=== PATIENT | male | born 1955 | race Caucasian/White ===

== ENCOUNTER 2017-10-13 04:42 | Emergency (ER) | payer OTHER ==
[~2017-10-13] VITALS: Ht 177.8 cm; Wt 77.4 kg
[~2017-10-13 04:42] MED LIST: ADVAIR 100/501 DISK IH; CELEXA40 MG PO; DEMEROL100 MG PO; GABAPENTIN300 MG PO; HYDROXYZINE HCL25 MG PO; KADIAN30 MG PO; LOTREL 10-20 M1 EACH PO; LOTREL 10/21 CAPSULE PO; OXYCODONE HCL30 MG PO; OXYCONTIN80 MG PO; POTASSIUM-9999 MG PO; SOMA350 MG PO
[2017-10-13 05:52] VITALS: BP 160/88
[2017-10-14] MEDS ORDERED: CELEXA10 MG PO (00:52)
[2017-10-14] MEDS ORDERED: SOMA250 MG PO (00:53)
== END 2017-10-13 05:53 | disposition home or self-care (01) ==
LOC: EME 04:42
DX: R04.0 Epistaxis (principal); F31.9 Bipolar disorder, unspecified; R05 Cough; I10 Essential (primary) hypertension; J44.9 Chronic obstructive pulmonary disease, unspecified; F17.200 Nicotine dependence, unspecified, uncomplicated
CPT/HCPCS: 99281; 99284

== ENCOUNTER 2017-10-13 23:43 | Emergency (ER) | payer OTHER ==
[~2017-10-13] VITALS: Ht 177.8 cm; Wt 76.3 kg
[2017-10-14] MEDS ORDERED: CELEXA10 MG PO (00:52)
[2017-10-14] MEDS ORDERED: SOMA250 MG PO (00:53)
[2017-10-14 01:09] VITALS: BP 179/94
== END 2017-10-14 01:12 | disposition home or self-care (01) ==
LOC: EME 23:43
DX: F31.10 Bipolar disorder, current episode manic without psychotic features, unspecified (principal); Z76.0 Encounter for issue of repeat prescription; I10 Essential (primary) hypertension; F17.200 Nicotine dependence, unspecified, uncomplicated
CPT/HCPCS: 90839; 99281; 99283

== ENCOUNTER 2017-10-18 05:45 | Inpatient (IN) | payer OTHER ==
[~2017-10-18] VITALS: Ht 177.8 cm; Wt 74.0 kg
[~2017-10-18 05:45] MED LIST changes: +CELEXA10 MG PO; +SOMA250 MG PO
[2017-10-18 07:05] LABS: HEMATOCRIT 36.8 % (38.0-50.0); MCH 31.7 PG (29.0-34.0); MCHC 35.3 G/DL (30.0-36.0); MCV 89.8 FL (86-99); PLATELET COUNT 293 K/uL (156-360); RBC DIS.WIDTH-CV 13.7 % (11.8-14.6); RBC DIS.WIDTH-SD 44.5 % (39-53); WHITE BLOOD COUNT 9.9 K/uL (4.1-10.2)
[2017-10-18 07:07] LABS: APPEARANCE CLEAR ((CLEAR)); BILIRUBIN NEGATIVE; BLOOD NEGATIVE; COLOR YELLOW ((YELLOW)); GLUCOSE (STRIP) NEGATIVE; KETONES 20; LEUKOCYTES NEGATIVE; NITRITE NEGATIVE; PROTEIN (STRIP) NEGATIVE; SPECIFIC GRAVITY 1.012 (1.000-1.030); UCUL ADDED? NO; UROBILINOGEN 0.2 MG/DL (0.2-1.0)
[2017-10-18 07:22] LABS: AMPHETAMINE NEGATIVE (500 ng/mL); BARBITURATES NEGATIVE (200 ng/mL); BENZODIAZEPINES NEGATIVE (150 ng/mL); BUPRENORPHINE NEGATIVE (10 ng/mL); COCAINE NEGATIVE (150 ng/mL); METHADONE NEGATIVE (200 ng/mL); METHAMPHETAMINE NEGATIVE (500 ng/mL); OPIATES (MORPHINE) NEGATIVE (100 ng/mL); OXYCODONE NEGATIVE (100 ng/mL); PHENCYCLIDINE NEGATIVE (25 ng/mL); PROPOXYPHENE NEGATIVE (300 ng/mL); THC CANNABINOIDS NEGATIVE (50 ng/mL); TRICYCLIC ANTIDEPRESSANTS NEGATIVE (300 ng/mL)
[2017-10-18 07:27] LABS: CHLORIDE 101 MEQ/L (99-109); POTASSIUM 3.9 MEQ/L (3.7-5.4); SODIUM 135 MEQ/L (136-147)
[2017-10-18 07:35] LABS: CREATININE 1.2 MG/DL (0.6-1.3); GFR ESTIMATE (CALCULATED) > 59 mL/min/ (58.99-99999); GLUCOSE 158 mg/dL (70-99); SERUM ETHYL ALCOHOL < 10 mg/dL; UREA NITROGEN (BUN) 24 mg/dL (9-23)
[2017-10-18] MEDS ORDERED: CELEXA20 MG PO (12:45)
[2017-10-18] MEDS ORDERED: AMBIEN10 MG PO (12:46)
[2017-10-18] MEDS ORDERED: RANITIDINE HCL150 M1 PO (12:46)
[2017-10-18] MEDS ORDERED: ADVAIR 500/501 DISK IH (13:00)
[2017-10-18] MEDS ORDERED: VENTOLIN HFA18 GM IH (13:02)
[2017-10-18] MEDS ORDERED: SPIRIVA1 INHALATI IH (13:02)
[2017-10-18] MEDS ORDERED: REVATIO20 MG PO (13:05)
[2017-10-19 08:00] VITALS: BP 188/79
[2017-10-19 16:56] VITALS: BP 107/72
[2017-10-20 07:37] VITALS: BP 122/63
[2017-10-21 07:31] VITALS: BP 113/59
[2017-10-21 16:02] VITALS: BP 173/71
[2017-10-22 07:41] VITALS: BP 150/63
[2017-10-22] MEDS ORDERED: SEROQUEL100 MG PO (09:00)
[2017-10-22] MEDS ORDERED: ADVAIR 500/501 DISK IH (09:00)
[2017-10-22] MEDS ORDERED: VENTOLIN HFA18 GM IH (09:00)
[2017-10-22] MEDS ORDERED: LOTREL 10/21 CAPSULE PO (09:00)
[2017-10-22] MEDS ORDERED: SPIRIVA1 INHALATI IH (09:00)
[2017-10-22] MEDS ORDERED: POTASSIUM-9999 MG PO (09:00)
[2017-10-22] MEDS ORDERED: SEROQUEL400 MG PO (09:00)
== END 2017-10-22 13:02 | disposition home or self-care (01) | DRG 885 ==
LOC: EME → EDBD 05:45 → EME 05:45 → EDOF 10:11 → 1WEST 10:11 → ENRESERV 14:20 → 1WEST 14:20
PROVIDERS: Emergency Medicine
DX: F31.2 Bipolar disorder, current episode manic severe with psychotic features (principal); I10 Essential (primary) hypertension; J44.9 Chronic obstructive pulmonary disease, unspecified; F17.200 Nicotine dependence, unspecified, uncomplicated; Z91.5 Personal history of self-harm
CPT/HCPCS: 80048; 81003; 85027; 90837; 94640; 94799; 97150 GO; 97166 GO; 99281; 99283; G0480

== ENCOUNTER 2017-10-22 21:01 | Emergency (ER) | payer OTHER ==
[~2017-10-22] VITALS: Ht 177.8 cm; Wt 77.6 kg
[~2017-10-22 21:01] MED LIST changes: +ADVAIR 500/501 DISK IH; +AMBIEN10 MG PO; +CELEXA20 MG PO; +RANITIDINE HCL150 M1 PO; +REVATIO20 MG PO; +SEROQUEL100 MG PO; +SEROQUEL400 MG PO; +SPIRIVA1 INHALATI IH; +VENTOLIN HFA18 GM IH
[2017-10-23 01:44] VITALS: BP 107/84
[2017-10-24] MEDS ORDERED: CARISOPRODOL250 MG PO (23:16)
[2017-10-24] MEDS ORDERED: AMBIEN10 MG PO (23:17)
[2017-10-24] MEDS ORDERED: CELEXA20 MG PO (23:17)
== END 2017-10-23 01:45 | disposition home or self-care (01) ==
LOC: EME 21:01
DX: F43.20 Adjustment disorder, unspecified (principal); F31.9 Bipolar disorder, unspecified; I10 Essential (primary) hypertension; K21.9 Gastro-esophageal reflux disease without esophagitis; F17.200 Nicotine dependence, unspecified, uncomplicated
CPT/HCPCS: 90839; 99281; 99283

== ENCOUNTER 2017-10-23 04:50 | Emergency (ER) | payer OTHER ==
[~2017-10-23] VITALS: Ht 177.8 cm; Wt 77.6 kg
[2017-10-23 04:52] VITALS: BP 112/81
[2017-10-24] MEDS ORDERED: CARISOPRODOL250 MG PO (23:16)
[2017-10-24] MEDS ORDERED: AMBIEN10 MG PO (23:17)
[2017-10-24] MEDS ORDERED: CELEXA20 MG PO (23:17)
== END 2017-10-23 05:20 | disposition home or self-care (01) ==
LOC: EME 04:50
DX: Z76.89 Persons encountering health services in other specified circumstances (principal); F31.9 Bipolar disorder, unspecified
CPT/HCPCS: 99281; 99283

== ENCOUNTER 2017-10-24 20:12 | Observation (INO) | payer OTHER ==
[~2017-10-24] VITALS: Ht 177.8 cm; Wt 77.9 kg
[2017-10-24 20:52] LABS: APPEARANCE CLEAR ((CLEAR)); BILIRUBIN NEGATIVE; BLOOD NEGATIVE; COLOR YELLOW ((YELLOW)); GLUCOSE (STRIP) NEGATIVE; KETONES NEGATIVE; LEUKOCYTES NEGATIVE; NITRITE NEGATIVE; PROTEIN (STRIP) NEGATIVE; SPECIFIC GRAVITY 1.017 (1.000-1.030); UCUL ADDED? NO; UROBILINOGEN 0.2 MG/DL (0.2-1.0)
[2017-10-24 21:02] LABS: HEMOGLOBIN 12.7 G/DL (12.5-16.6); MCH 31.7 PG (29.0-34.0); MCHC 34.3 G/DL (30.0-36.0); MCV 92.3 FL (86-99); PLATELET COUNT 280 K/uL (156-360); RBC DIS.WIDTH-SD 47.7 % (39-53); RED BLOOD COUNT 4.01 M/uL (4.00-5.50); WHITE BLOOD COUNT 10.5 K/uL (4.1-10.2)
[2017-10-24 21:13] LABS: ALBUMIN 4.3 g/dL (3.2-4.8); CHLORIDE 106 mEq/L (99-109)
[2017-10-24 21:14] LABS: POTASSIUM 4.7 mEq/L (3.7-5.4); SODIUM 140 mEq/L (136-147)
[2017-10-24 21:16] LABS: GLUCOSE 94 mg/dL (70-99)
[2017-10-24 21:18] LABS: TOTAL BILIRUBIN 0.9 mg/dL (0.0-1.0)
[2017-10-24 21:19] LABS: ALKALINE PHOSPHATASE 70 IU/L (3-129); GFR ESTIMATE (CALCULATED) 41 mL/min/ (58.99-99999)
[2017-10-24 21:21] LABS: AST (GOT) 25 IU/L (2-34)
[2017-10-24 21:22] LABS: ALT (GPT) 24 IU/L (3-49)
[2017-10-24 21:24] LABS: CREATININE 1.8 mg/dL (0.6-1.3); UREA NITROGEN (BUN) 39 mg/dL (9-23)
[2017-10-24 21:42] LABS: TROP-I INTERPRETATION NEGATIVE; TROPONIN-I 0.01 ng/mL (0.0-0.30)
[2017-10-24 21:54] LABS: SERUM ETHYL ALCOHOL < 10 mg/dL
[2017-10-24 22:33] LABS: AMPHETAMINE NEGATIVE (500 ng/mL); BARBITURATES NEGATIVE (200 ng/mL); BENZODIAZEPINES NEGATIVE (150 ng/mL); BUPRENORPHINE NEGATIVE (10 ng/mL); COCAINE NEGATIVE (150 ng/mL); METHADONE NEGATIVE (200 ng/mL); METHAMPHETAMINE NEGATIVE (500 ng/mL); OPIATES (MORPHINE) NEGATIVE (100 ng/mL); OXYCODONE NEGATIVE (100 ng/mL); PHENCYCLIDINE NEGATIVE (25 ng/mL); PROPOXYPHENE NEGATIVE (300 ng/mL); THC CANNABINOIDS NEGATIVE (50 ng/mL); TRICYCLIC ANTIDEPRESSANTS PRESUMPTIVE POSITIVE (300 ng/mL)
[2017-10-24] MEDS ORDERED: CARISOPRODOL250 MG PO (23:16)
[2017-10-24] MEDS ORDERED: AMBIEN10 MG PO (23:17)
[2017-10-24] MEDS ORDERED: CELEXA20 MG PO (23:17)
[2017-10-25 01:28] VITALS: BP 110/57
[2017-10-25 05:04] VITALS: BP 93/50
[2017-10-25 09:06] LABS: TROP-I INTERPRETATION NEGATIVE; TROPONIN-I < 0.01 ng/mL (0.0-0.30)
[2017-10-25 10:05] LABS: CHLORIDE 106 MEQ/L (99-109); CREATININE 1.3 MG/DL (0.6-1.3); GFR ESTIMATE (CALCULATED) > 59 mL/min/ (58.99-99999); GLUCOSE 112 mg/dL (70-99); POTASSIUM 4.7 MEQ/L (3.7-5.4); SODIUM 139 MEQ/L (136-147); UREA NITROGEN (BUN) 32 mg/dL (9-23)
[2017-10-25 12:42] LABS: TROP-I INTERPRETATION NEGATIVE; TROPONIN-I < 0.01 ng/mL (0.0-0.30)
[2017-10-25 14:20] VITALS: BP 124/70
[2017-10-25 16:21] VITALS: BP 137/58
[2017-10-26] MEDS ORDERED: DIVALPROEX SOD500 M1 PO (14:18)
== END 2017-10-25 19:56 ==
LOC: EME → EDBD 20:12 → EDOF 23:55 → 4SOUTH 23:55 → EDOF 23:55 → ENRESERV 10-25 00:01 → 4SOUTH 10-25 01:00 → ENRESERV 10-25 14:39 → 4SOUTH 10-25 14:41 → 1WEST 10-25 19:45 → 4SOUTH 10-25 19:45
PROVIDERS: Emergency Medicine; Hospitalist; Physician Assistant
DX: I95.89 Other hypotension (principal); N17.9 Acute kidney failure, unspecified; R07.89 Other chest pain; F31.2 Bipolar disorder, current episode manic severe with psychotic features; I12.9 Hypertensive chronic kidney disease with stage 1 through stage 4 chronic kidney disease, or unspecified chronic kidney disease; N18.2 Chronic kidney disease, stage 2 (mild); J44.9 Chronic obstructive pulmonary disease, unspecified; I45.19 Other right bundle-branch block; K59.00 Constipation, unspecified
CPT/HCPCS: 74022; 74176; 80048; 80053; 81003; 84484; 85027; 93005; 99281; 99285; G0378; G0480; J1650; J7030

== ENCOUNTER 2017-10-25 20:25 | Inpatient (IN) | payer OTHER ==
[~2017-10-25] VITALS: Ht 177.8 cm; Wt 77.9 kg
[~2017-10-25 20:25] MED LIST changes: +CARISOPRODOL250 MG PO
[2017-10-25 21:03] VITALS: BP 126/65
[2017-10-26] MEDS ORDERED: DIVALPROEX SOD500 M1 PO (14:18)
== END 2017-10-26 15:42 | disposition left against medical advice (07) | DRG 885 ==
LOC: 1WEST 20:25
DX: F31.2 Bipolar disorder, current episode manic severe with psychotic features (principal); G40.909 Epilepsy, unspecified, not intractable, without status epilepticus; J44.9 Chronic obstructive pulmonary disease, unspecified; I10 Essential (primary) hypertension; Z59.0 Homelessness
CPT/HCPCS: 94640; 94760; 94799; Q0177

== ENCOUNTER 2017-10-30 22:20 | Observation (INO) | payer OTHER ==
[~2017-10-30] VITALS: Ht 177.8 cm; Wt 72.4 kg
[~2017-10-30 22:20] MED LIST changes: +DIVALPROEX SOD500 M1 PO
[2017-10-30 23:40] LABS: HEMATOCRIT 36.9 % (38.0-50.0); HEMOGLOBIN 12.5 G/DL (12.5-16.6); MCH 31.4 PG (29.0-34.0); MCHC 33.9 G/DL (30.0-36.0); MCV 92.7 FL (86-99); PLATELET COUNT 316 K/uL (156-360); RBC DIS.WIDTH-CV 13.3 % (11.8-14.6); RBC DIS.WIDTH-SD 45.5 % (39-53); RED BLOOD COUNT 3.98 M/uL (4.00-5.50); WHITE BLOOD COUNT 9.3 K/uL (4.1-10.2)
[2017-10-30 23:50] LABS: ALBUMIN 4.2 g/dL (3.2-4.8); CHLORIDE 106 mEq/L (99-109); POTASSIUM 4.4 mEq/L (3.7-5.4); SODIUM 138 mEq/L (136-147)
[2017-10-30 23:52] LABS: GLUCOSE 97 mg/dL (70-99)
[2017-10-30 23:53] LABS: TOTAL PROTEIN 6.9 g/dL (6.4-8.3)
[2017-10-30 23:55] LABS: TOTAL BILIRUBIN 0.3 mg/dL (0.0-1.0)
[2017-10-30 23:56] LABS: ALKALINE PHOSPHATASE 73 IU/L (3-129); GFR ESTIMATE (CALCULATED) 38 mL/min/ (58.99-99999)
[2017-10-30 23:57] LABS: UREA NITROGEN (BUN) 37 mg/dL (9-23)
[2017-10-30 23:58] LABS: AST (GOT) 33 IU/L (2-34)
[2017-10-30 23:59] LABS: ALT (GPT) 28 IU/L (3-49); CREATINE KINASE 737 IU/L (1-294); CREATININE 1.9 mg/dL (0.6-1.3)
[2017-10-31 01:14] LABS: APPEARANCE CLEAR ((CLEAR)); BILIRUBIN NEGATIVE; BLOOD NEGATIVE; COLOR YELLOW ((YELLOW)); GLUCOSE (STRIP) NEGATIVE; KETONES NEGATIVE; LEUKOCYTES NEGATIVE; NITRITE NEGATIVE; PROTEIN (STRIP) NEGATIVE; SPECIFIC GRAVITY 1.014 (1.000-1.030); UCUL ADDED? NO; UROBILINOGEN 0.2 MG/DL (0.2-1.0)
[2017-10-31 03:41] VITALS: BP 111/63
[2017-10-31 07:29] VITALS: BP 115/65
[2017-10-31] MEDS ORDERED: SINEMET 25-2501 EAC1 PO (08:01)
[2017-10-31 09:27] LABS: CHLORIDE 111 MEQ/L (99-109); CREATINE KINASE 418 IU/L (1-294); GLUCOSE 92 mg/dL (70-99); POTASSIUM 4.6 MEQ/L (3.7-5.4); SODIUM 141 MEQ/L (136-147); UREA NITROGEN (BUN) 24 mg/dL (9-23)
[2017-10-31 09:28] LABS: CREATININE 1.3 MG/DL (0.6-1.3); GFR ESTIMATE (CALCULATED) > 59 mL/min/ (58.99-99999)
[2017-10-31] MEDS ORDERED: SOMA COMPOUND PO (10:26)
[2017-10-31] MEDS ORDERED: LOTREL 10/21 CAPSULE PO (10:59)
[2017-10-31] MEDS ORDERED: AMBIEN10 MG PO (11:03)
[2017-10-31] MEDS ORDERED: LITE COAT ASPI325 M1 PO (11:04)
[2017-10-31 11:46] VITALS: BP 119/58
[2017-10-31] MEDS ORDERED: POLYETHYLENE GL17 GM PO (12:40)
[2017-10-31] MEDS ORDERED: ASPIR 8181 M1 PO (12:40)
[2017-10-31] MEDS ORDERED: AMLODIPINE BESYL5 MG PO (12:42)
[2017-10-31 15:19] VITALS: BP 143/76
== END 2017-10-31 19:00 | disposition home or self-care (01) ==
LOC: EME 22:20 → EDOF 10-31 00:33 → 4SOUTH 10-31 00:33 → EDOF 10-31 00:33 → 4SOUTH 10-31 01:13
PROVIDERS: Physician Assistant Medical
DX: N17.9 Acute kidney failure, unspecified (principal); M62.82 Rhabdomyolysis; F31.89 Other bipolar disorder; F06.33 Mood disorder due to known physiological condition with manic features; J44.9 Chronic obstructive pulmonary disease, unspecified; F17.210 Nicotine dependence, cigarettes, uncomplicated; F10.10 Alcohol abuse, uncomplicated; G40.909 Epilepsy, unspecified, not intractable, without status epilepticus; I10 Essential (primary) hypertension; G89.29 Other chronic pain; M54.9 Dorsalgia, unspecified; E86.0 Dehydration
CPT/HCPCS: 80048; 80053; 81003; 82550; 82550 91; 85027; 94640; G0378; J7030

== ENCOUNTER 2017-11-18 10:44 | Emergency (ER) | payer OTHER ==
[~2017-11-18] VITALS: Ht 177.8 cm; Wt 77.7 kg
[~2017-11-18 10:44] MED LIST changes: +AMLODIPINE BESYL5 MG PO; +ASPIR 8181 M1 PO; +LITE COAT ASPI325 M1 PO; +POLYETHYLENE GL17 GM PO; +SINEMET 25-2501 EAC1 PO; +SOMA COMPOUND PO
[2017-11-18 10:58] VITALS: BP 140/77
== END 2017-11-18 14:38 | disposition left against medical advice (07) ==
LOC: EME 10:44
DX: E86.0 Dehydration (principal); Z53.21 Procedure and treatment not carried out due to patient leaving prior to being seen by health care provider

== ENCOUNTER 2017-11-18 18:23 | Emergency (ER) | payer OTHER ==
[~2017-11-18] VITALS: Ht 177.8 cm; Wt 73.6 kg
[2017-11-18 18:27] VITALS: BP 155/87
== END 2017-11-18 18:48 ==
LOC: EME 18:23
DX: R45.850 Homicidal ideations (principal); F43.20 Adjustment disorder, unspecified; I10 Essential (primary) hypertension; K21.9 Gastro-esophageal reflux disease without esophagitis; F42.9 Obsessive-compulsive disorder, unspecified; F41.9 Anxiety disorder, unspecified; F32.9 Major depressive disorder, single episode, unspecified; F31.9 Bipolar disorder, unspecified; F17.200 Nicotine dependence, unspecified, uncomplicated; Z95.810 Presence of automatic (implantable) cardiac defibrillator
CPT/HCPCS: 99281; 99283